=== PATIENT | female | born 1950 | race African-American/Black ===

== ENCOUNTER 2020-12-29 23:40 | Emergency (ER) | payer OTHER ==
[~2020-12-29] VITALS: Ht 165.1 cm; Wt 93.9 kg
[2020-12-29] MEDS ORDERED: HYDROCHLOROTHIA50 MG PO (23:51)
[2020-12-29] MEDS ORDERED: NORCO 10-325 T1 EACH PO (23:51)
[2020-12-29] MEDS ORDERED: TOPIRAMATE50 MG PO (23:51)
[2020-12-29] MEDS ORDERED: GABAPENTIN 100100 MG PO (23:51)
[2020-12-29] MEDS ORDERED: DULOXETINE HCL60 MG PO (23:51)
[2020-12-29] MEDS ORDERED: METFORMIN HCL1000 MG PO (23:51)
[2020-12-29] MEDS ORDERED: ROSUVASTATIN CA40 MG PO (23:52)
[2020-12-29] MEDS ORDERED: OMEPRAZOLE 20 M20 M1 PO (23:52)
[2020-12-29] MEDS ORDERED: TIZANIDINE HCL4 M2 PO (23:52)
[2020-12-30 02:41] VITALS: BP 165/76
== END 2020-12-30 04:21 | disposition home or self-care (01) ==
LOC: ER 23:40
DX: S61.210A Laceration without foreign body of right index finger without damage to nail, initial encounter (principal); I10 Essential (primary) hypertension; E11.9 Type 2 diabetes mellitus without complications; Z88.5 Allergy status to narcotic agent; W01.198A Fall on same level from slipping, tripping and stumbling with subsequent striking against other object, initial encounter; Y93.89 Activity, other specified; Y92.096 Garden or yard of other non-institutional residence as the place of occurrence of the external cause; Y99.8 Other external cause status